=== PATIENT | male | born 1970 | race Hispanic/Latino ===

== ENCOUNTER 2017-09-04 09:26 | Inpatient (IN) | payer OTHER ==
[2017-09-04 09:28] VITALS: BMI 25.0
[2017-09-04] MEDS ORDERED: Iodixanol 320 MG/ML 100 ML BOTTLE IV ONE ×2 (09:51→16:06)
[2017-09-04] MEDS ORDERED: Sodium Chloride 0.9% 50 ML IV ONE ×2 (09:51→16:06)
--- NOTE | 2017-09-04 09:59 | CT ---
PROCEDURE: CT HEAD WITHOUT CONTRAST. HISTORY: code stroke COMPARISON: None available. TECHNIQUE: Axial computed tomography images were obtained through the head/brain without intravenous contrast. Radiation dose: Total exam DLP = 752 mGy-cm. This CT exam was performed using one or more of the following dose reduction techniques: Automated exposure control, adjustment of the mA and/or kV according to patient size, and/or use of iterative reconstruction technique. FINDINGS: The exam is limited due to patient's motion HEMORRHAGE: No intracranial hemorrhage. BRAIN: No mass effect or edema. No atrophy or chronic microvascular ischemic changes. VENTRICLES: Unremarkable. No hydrocephalus. CALVARIUM: Unremarkable. PARANASAL SINUSES: Unremarkable as visualized. No significant inflammatory changes. MASTOID AIR CELLS: Unremarkable as visualized. No inflammatory changes. OTHER FINDINGS: None. IMPRESSION: No intracranial hemorrhage or mass effect.
[2017-09-04 10:11] LABS: BASO % 0.4 % (0.0-2.0); EOS # 0.1 K/uL (0.0-0.7); EOS % 0.5 % (0.0-4.0); HEMOGLOBIN 14.9 g/dL (12.0-18.0); LYMPH # 0.6 K/uL (1.0-4.3); LYMPH % 5.2 % (20.0-40.0); MEAN CELL VOLUME 87.7 fl (80.0-94.0); MEAN CORPUSCULAR HEMOGLOBIN 29.6 pg (27.0-31.0); MEAN CORPUSCULAR HGB CONC 33.7 g/dL (33.0-37.0); MEAN PLATELET VOLUME 10.6 fl (7.2-11.7); MONO # 0.6 K/uL (0.0-0.8); MONO % 4.9 % (0.0-10.0); NEUT # 10.5 K/uL (1.8-7.0); NRBC % 0.1 % (0.0-0.0); PLATELET COUNT 275 K/uL (130-400); RBC 5.05 Mil/uL (4.40-5.90); RED CELL DISTRIBUTION WIDTH 12.7 % (11.5-14.5); WHITE BLOOD COUNT 11.8 K/uL (4.8-10.8)
[2017-09-04 10:16] LABS: PROTHROMBIN TIME 11.2 Seconds (9.8-13.1)
[2017-09-04 10:21] LABS: ABG ALLEN TEST YES; ARTERIAL BLOOD GAS HCO3 21.1 mmol/L (21-28); ARTERIAL BLOOD GAS O2 SAT 48.7 % (95-98); ARTERIAL BLOOD GAS PCO2 34 mm/Hg (35-45); ARTERIAL BLOOD GAS PO2 22 mm/Hg (80-100); ARTERIAL BLOOD GAS TCO2 22.1 mmol/L (22-28)
[2017-09-04 10:25] LABS: ALB/GLOB RATIO 1.4 (1.0-2.1); ALBUMIN 4.4 g/dL (3.5-5.0); ALT/SGPT 36 U/L (21-72); AST/SGOT 25 U/L (17-59); BLOOD UREA NITROGEN 16 mg/dl (9-20); GFR AFRICAN-AMERICAN > 60; GFR NON-AFRICAN AMERICAN > 60; HDL CHOLESTEROL 37 MG/DL (30-70)
[2017-09-04 10:30] LABS: ABG ALLEN TEST YES; ARTERIAL BLOOD GAS HCO3 22.9 mmol/L (21-28); ARTERIAL BLOOD GAS O2 SAT 99.3 % (95-98); ARTERIAL BLOOD GAS PCO2 26 mm/Hg (35-45); ARTERIAL BLOOD GAS PH 7.48 (7.35-7.45); ARTERIAL BLOOD GAS PO2 115 mm/Hg (80-100); ARTERIAL BLOOD GAS TCO2 20.2 mmol/L (22-28)
[2017-09-04] MEDS: Sodium Chloride 0.9% 1,000 ML IV SCH (10:30)
[2017-09-04 10:36] LABS: LDL CHOLESTEROL 109 mg/dL (0-129)
--- NOTE | 2017-09-04 11:01 | CARD ---
APPROVED REPORT EKG Measurement Heart [id number] OK [id number] <Conclusion> Normal sinus rhythm Low voltage QRS Septal infarct, age undetermined Abnormal ECG
--- NOTE | 2017-09-04 11:06 | ED PDOC ---
HPI: Altered Mental Status Time Seen by Provider: 09/04/17 09:41 Chief Complaint (Nursing): Altered Mental Status History Per: Family (this is a 47 yo male who presents to the ER because he was noted to have collapsed in the lobby at work, after which he was noted to be confused and unable to speak. According to his , he had texted unintelligible words to her around the same. She also states that he had a headache this morning but decided to go to work from [place] to [place] where he works for [employer]. Patient h/o migraine headaches that has resulted in ER visits and CT of the brain because of numbness of lips and extremities. He does not usually take any meds for migraines. Of note is that he had taken one take of his Vyvanse 20mg 4 days ago. It is not clear whether he has taken more since then. will verify this.), Other Past Medical History Reviewed: Historical Data, Nursing Documentation, Vital Signs Vital Signs: Last Vital Signs Temp 98 F 09/04/17 09:55 Pulse 105 H 09/04/17 09:55 Resp 16 09/04/17 09:55 BP 144/79 09/04/17 09:55 Pulse Ox 99 09/04/17 09:55 - Medical History PMH: Migraine - Surgical History Other surgeries: knee surgery complicated by blood clots. He was on blood thinners for 2 months and had stopped it. This happenned a little over one year ago. - Family History Family History: States: No Known Family Hx - Living Arrangements Living Arrangements: With Family - Social History Alcohol: Occasional Drugs: Denies (as per ) - Allergies Allergies/Adverse Reactions: Allergies Allergy/AdvReac Type Severity Reaction Status Date / Time No Known Allergies Allergy Verified 09/04/17 10:27 Review of Systems ROS Statement: Except As Marked, All Systems Reviewed And Found Negative Review Of Systems: ROS cannot be obtained secondary to pt's inabilty to answer questions. Constitutional: Positive for: Fever Physical Exam - Reviewed Nursing Documentation Reviewed: Yes Vital Signs Reviewed: Yes - Physical Exam Appears: Positive for: Well, Non-toxic, No Acute Distress Head Exam: Positive for: ATRAUMATIC, NORMAL INSPECTION, NORMOCEPHALIC Skin: Positive for: Normal Color, Warm, DRY Eye Exam: Positive for: Normal appearance, EOMI, PERRL (dilated but reactive and equal) ENT: Positive for: Normal ENT Inspection Neck: Positive for: Normal, Painless ROM Cardiovascular/Chest: Positive for: Regular Rate, Rhythm Respiratory: Positive for: CNT, Normal Breath Sounds Gastrointestinal/Abdominal: Positive for: Normal Exam, Soft Back: Positive for: Normal Inspection Extremity: Positive for: Normal ROM Neurologic/Psych: Positive for: Alert, Oriented - Laboratory Results Result Diagrams: 09/04/17 10:00 09/04/17 10:00 - ECG O2 Sat by Pulse Oximetry: 99 - Progress Re-evaluation Time: 12:31 Condition: Re-examined, Unchanged - Critical Care Total Time (In Min): 60 Medical Decision Making Medical Decision Making: patient's labs show severely low phosphorous. Pharmacist consulted. Will give IV Kphos. Case d/w . Patient is still confused. Discussed admission. is considering transferring patient to hospital near home in [facility]. 3.00p - Patient still here. Case reviewed Dr. Lake Doshi's PA who took care of Uvaldo last year after his knee surgery. She says that Dr. Bethea will accept patient on his service. Also spoke to Dr. Joann Rodriguez ( [phone]), the [facility] ([facility]). She also agreed to take patient onto the hospitalist service. A prior authorization is being requested prior to transfer. Lizabeth from case management is involved to assist. Patient's kept up to date on the process 3:45p - case d/w Dr. Silva. Advised MgS04 2gm, Decadron 10mg IV, Depakote 500mg IV and CTA Head and Neck. 4.45p - patient in CT. Efforts to transfer still in progress. Will endorse case to Dr. Ferguson. Disposition - Clinical Impression Clinical Impression: Altered mental status, Hypophosphatemia - Patient ED Disposition Is Patient to be Admitted: Transfer of Care - Disposition Disposition: Transfer of Care Disposition Time: 16:51 Condition: GUARDED Instructions: Altered Mental Status Forms: [employer] (Scottish) Patient Signed Over To: Jesús Ferguson Present On Arrival: None
[2017-09-04 11:34] LABS: LYMPHOCYTE 4 % (20-50); MONOCYTE 5 % (0-10); NEUTROPHIL 91 % (42-75); TOTAL CELLS COUNTED 100
[2017-09-04 11:35] LABS: PLATELET ESTIMATE NORMAL (NORMAL)
[2017-09-04] MEDS ORDERED: Potassium Phosphate 30 MMOLE in Sodium Chloride 0.9% 250 ML IV ONE (12:30)
[2017-09-04] MEDS ORDERED: Potassium Phosphate 15 MMOLE in Sodium Chloride 0.9% 250 ML IV ONE (12:45)
[2017-09-04] MEDS ORDERED: Sodium Chloride 0.9% 1,000 ML IV STA (15:54)
[2017-09-04] MEDS ORDERED: Dexamethasone 10 MG in Sodium Chloride 0.9% 50 ML IV ONE (15:56)
[2017-09-04] MEDS ORDERED: Valproate 500 MG in Sodium Chloride 0.9% 100 ML IVPB ONE (16:15)
[2017-09-04] MEDS ORDERED: Magnesium Sulfate 2 gm/50 ml 2 GM/50 ML BAG IVPB ONE (16:15)
[2017-09-04] MEDS ORDERED: Magnesium Sulfate 2 gm/50 ml 2 GM/50 ML BAG ONE (16:23)
--- NOTE | 2017-09-04 17:41 | CT ---
PROCEDURE: CT Angiography of the neck with contrast HISTORY: AMS COMPARISON: Comparison made with CT scan brain 09/04/2017. TECHNIQUE: Contiguous axial images of the neck were obtained from the level of the skull-base to the superior mediastinum in the arteriographic phase of enhancement. Coronal and sagittal reformats or also generated. IV contrast dose: 90 cc Visipaque 320 Radiation Dose - DLP: 695.2 mGy-cm This CT exam was performed using one or more of the following dose reduction techniques: Automated exposure control, adjustment of the mA and/or kV according to patient size, and/or use of iterative reconstruction technique. FINDINGS: RIGHT CAROTID ARTERIES: Common Carotid Artery: Normal. Carotid Bifurcation: Normal. Internal Carotid Artery:Normal. External Carotid Artery (proximal branches): Normal. LEFT CAROTID ARTERIES: Common Carotid Artery: Normal. Carotid Bifurcation: Normal. Internal Carotid Artery:Normal. External Carotid Artery (proximal branches): Normal. VERTEBRAL ARTERIES: Right Vertebral Artery: Normal. Left Vertebral Artery: Normal. OTHER FINDINGS: No evidence of intra cerebral aneurysm nor vascular malformation. The aortic arch widely patent with no significant atherosclerotic disease. . No significant calcified atherosclerotic plaque at the origins of the great vessels which also widely patent. Note made of multiple small palatine tonsillar calcifications consistent with tonsilliths. IMPRESSION: Normal CT Angiography of the neck. Incidental note made of multiple small bilateral tonsilliths.
[2017-09-04] MEDS ORDERED: Sodium Phosphate 30 MMOLE in Dextrose 5% In Water 250 ML IV SCH (17:45)
--- NOTE | 2017-09-04 18:31 | CP.CCUPN ---
CCU Subjective - Physician Review Subjective (Free Text): 47M with PMH Complex Migraines on Imitrex, Tylenol/Motrin prn, admitted today after Code Stroke evaluation. He was found collapsed in the Lobby at work today. He did complain of headaches and not feeling well, but decided to go to work as usual. After collapse, found to be confused, not following commands, and dysarthric, but no focal weakness noted. Later became more agitated and combative and required sedation with Ativan for CT brain study. Initial labs notable for low Phosphate, subsequently given KPhos IV. Remains sedated post Ativan administration. Other vitals and I/O's reviewed. Afebrile, tachycardic 103, BP 144/79, RR = 16 , 99% sat on RA ROS: no other pertinent negs or positives on 10+ system review obtainable due to confusion. Allergies: NKDA Home meds: as above, also Vyvanse prn: last dose 20 mg few days ago according to . PMSFH: All other Nursing and physician documentation reviewed to date; no new pertinent info obtained that is different or contributory to information already listed. EXAM- HEENT: no icterus, pupils equal and reactive, no gaze preference nor nystagmus, Gag intact NECK: No JVD, supple, carotids equal upstroke bilat/no bruits CHEST: clear with diminished BS bases bilat, no wheezes audible HEART: regular, distant, S1S2, no rubs or murmurs ABD: soft, no distention, no tympany, no palp tenderness, BS hypoactive EXT: No peripheral/ digital cyanosis, no calf tenderness or palpable cords, distal pulses intact and symmetrical. NEURO: No gross focal motor deficits. SKIN: no rashes, warm and dry. LABS: WBC= 11.8 HGB= 14.9 PLTs= 275K Coags Nnormal VB.40/34/22 48% satn AB.48/26/115 on RA Gk=812 K= 4.6 EB=661 HCO3= 18 BUN/Cr= 16/1.0 BS= 157 Lactate= 4.6, repeated approx 30 mins later = 3.3 Phos= below 0.5 Mg= 1.8 Ca= 10.0 with Alb = 4.4 CT Head: negative CTA Brain: formal results pending EKG: Sinus 84/min, Qs in V2-3, poor R progression anteriorly (my interp). IMPRESSION / MAJOR PROBLEMS NOW: 1. AMS with Syncope, r/o occult Seizure Disorder due to severely low Phosphate levels 2. Hypophosphatemia 3. Elevated AG Metabolic Acidosis PLAN: 1. Await CTA results, started on Decadron and Depakote as per Neurology for [employer] Migraine disease. 2. Seizure precautions, Neurochecks, HOB elevation, may need 1:1 supervision for patient safety. Repeat brain imaging as per Neurology. 3. IVF hydration, replete more phosphate as Sodium Phosphate. Will keep NPO for now; with aspiration precautions. Check routine CXR. 4. Does not appear to need any emergent nor immediate airway protection at this time. 5. Check other metabolic w/u: TFTs, Serial CK levels, lactate, repeat BMP/ CMPs, Vit D level, PTH level. 6. Arrangements in progress for transfer to [facility] as per familys request.
--- NOTE | 2017-09-04 18:47 | CP.PCM.CON ---
History of Present Illness - History of Present Illness History of Present Illness: Neurology Consultation Note: Mr. Mosher is a 47-year-old man with past a medical history of complicated migraine headaches, who collapsed at work today after texting his unintelligible words. He had complained of migraine headache this morning. He was brought to the ED, where he continued to be confused, but was able to form full sentences. He had difficulty with comprehension and following commands. A "code stroke" was called. CT scan of the head was unremarkable. Labs were significant for hypophosphatemia. CTA of the head/neck did not show any large vessel occlusion. His states that that patient appears to have taken about 60 mg of Vyvance. He is naive to his medication and apparently took it from a relative. He was combative and needed sedation with Ativan. Currently, he is somnolent, but moves all extremities and says "ouch" to painful stimulus. He does not appear to have any facial droop or focal weakness. He can make sentences when prompted at times and was able to walk to the bathroom where he refused to provide urine for labs. Review of Systems - Review of Systems All systems: reviewed and no additional remarkable complaints except Past Patient History - Past Social History Alcohol: Occasional Drugs: Denies (as per ) - NEUROLOGICAL Hx Migraine: Yes - PSYCHIATRIC Hx Substance Use: No (unknown) Meds Allergies/Adverse Reactions: Allergies Allergy/AdvReac Type Severity Reaction Status Date / Time No Known Allergies Allergy Verified 09/04/17 10:27 - Medications Medications: Current Medications Sodium Chloride (Sodium Chloride 0.9%) 1,000 mls @ 100 mls/hr IV .Q10H THA Last Admin: 09/04/17 10:30 Dose: 100 mls/hr Sodium Chloride (Sodium Chloride 0.9%) 1,000 mls @ 125 mls/hr IV .Q8H STA Stop: 09/04/17 23:53 Last Admin: 09/04/17 17:38 Dose: 125 mls/hr Sodium Phosphate 30 mmole/ (Dextrose) 260 mls @ 65 mls/hr IV .Q4H THA Stop: 09/04/17 21:44 Physical Exam - Neurological Exam Neurological exam: Altered, CN II-XII Intact, Normal Gait, Reflexes Normal Additional comments: Pupils are widely dilated and reactive to light. Moves all extremities, responds to pain, does not open eyes. Results - Vital Signs Recent Vital Signs: Last Vital Signs Temp 98 F 09/04/17 09:55 Pulse 103 H 09/04/17 13:28 Resp 16 09/04/17 13:28 BP 134/82 09/04/17 13:28 Pulse Ox 99 09/04/17 16:51 - Labs Result Diagrams: 09/04/17 10:00 09/04/17 10:00 Labs: Laboratory Results - last 24 hr 09/04/17 09/04/17 09/04/17 09:35 10:00 10:00 WBC 11.8 H RBC 5.05 Hgb 14.9 Hct 44.3 MCV 87.7 MCH 29.6 MCHC 33.7 RDW 12.7 Plt Count 275 MPV 10.6 Neut % (Auto) 89.0 H Lymph % (Auto) 5.2 L Mclennan % (Auto) 4.9 Eos % (Auto) 0.5 Baso % (Auto) 0.4 Neut # (Auto) 10.5 H Lymph # (Auto) 0.6 L Mclennan # (Auto) 0.6 Eos # (Auto) 0.1 Baso # (Auto) 0.0 Neutrophils % (Manual) 91 H Lymphocytes % (Manual) 4 L Monocytes % (Manual) 5 Platelet Estimate Normal PT INR APTT pCO2 pO2 HCO3 ABG pH ABG Total CO2 ABG O2 Saturation ABG Base Excess Edy Test ABG Potassium A-a O2 Difference Glucose Lactate FiO2 Crit Value Called To Crit Value Called By Crit Value Read Back Blood Gas Notified Time Sodium 141 Potassium 4.6 Chloride 107 Carbon Dioxide 18 L Anion Gap 21 H BUN 16 Creatinine 1.0 Est GFR ( Amer) > 60 Est GFR (Non-Af Amer) > 60 POC Glucose (mg/dL) 119 H Random Glucose 157 H Hemoglobin A1c Calcium 10.0 Phosphorus < 0.5 L* Magnesium 1.8 Total Bilirubin 0.9 AST 25 ALT 36 Alkaline Phosphatase 40 Troponin I < 0.0120 Total Protein 7.6 Albumin 4.4 Globulin 3.1 Albumin/Globulin Ratio 1.4 Triglycerides 62 Cholesterol 183 LDL Cholesterol Direct 109 HDL Cholesterol 37 Arterial Blood Potassium Alcohol, Quantitative < 10 Blood Type Antibody Screen BBK History Checked 09/04/17 09/04/17 09/04/17 10:00 10:00 10:00 WBC RBC Hgb Hct MCV MCH MCHC RDW Plt Count MPV Neut % (Auto) Lymph % (Auto) Mclennan % (Auto) Eos % (Auto) Baso % (Auto) Neut # (Auto) Lymph # (Auto) Mclennan # (Auto) Eos # (Auto) Baso # (Auto) Neutrophils % (Manual) Lymphocytes % (Manual) Monocytes % (Manual) Platelet Estimate PT 11.2 INR 1.0 APTT 26.0 pCO2 pO2 HCO3 ABG pH ABG Total CO2 ABG O2 Saturation ABG Base Excess Edy Test ABG Potassium A-a O2 Difference Glucose Lactate FiO2 Crit Value Called To Crit Value Called By Crit Value Read Back Blood Gas Notified Time Sodium Potassium Chloride Carbon Dioxide Anion Gap BUN Creatinine Est GFR ( Amer) Est GFR (Non-Af Amer) POC Glucose (mg/dL) Random Glucose Hemoglobin A1c 5.2 Calcium Phosphorus Magnesium Total Bilirubin AST ALT Alkaline Phosphatase Troponin I Total Protein Albumin Globulin Albumin/Globulin Ratio Triglycerides Cholesterol LDL Cholesterol Direct HDL Cholesterol Arterial Blood Potassium Alcohol, Quantitative Blood Type A POSITIVE Antibody Screen Negative BBK History Checked No verified bt 09/04/17 09/04/17 10:05 10:27 WBC RBC Hgb Hct MCV MCH MCHC RDW Plt Count MPV Neut % (Auto) Lymph % (Auto) Mclennan % (Auto) Eos % (Auto) Baso % (Auto) Neut # (Auto) Lymph # (Auto) Mclennan # (Auto) Eos # (Auto) Baso # (Auto) Neutrophils % (Manual) Lymphocytes % (Manual) Monocytes % (Manual) Platelet Estimate PT INR APTT pCO2 34 L 26 L pO2 22 L* 115 H HCO3 21.1 22.9 ABG pH 7.40 7.48 H ABG Total CO2 22.1 20.2 L ABG O2 Saturation 48.7 L 99.3 H ABG Base Excess -2.9 L -2.5 L Edy Test Yes Yes ABG Potassium 3.9 3.6 A-a O2 Difference 85.0 2.0 Glucose 160 H 156 H Lactate 4.6 H* 3.3 H FiO2 21.0 21.0 Crit Value Called To Dr yovani lainez Crit Value Called By 15 Crit Value Read Back Y Blood Gas Notified Time 1020 Sodium 138.0 135.0 Potassium Chloride 106.0 107.0 Carbon Dioxide Anion Gap BUN Creatinine Est GFR ( Amer) Est GFR (Non-Af Amer) POC Glucose (mg/dL) Random Glucose Hemoglobin A1c Calcium Phosphorus Magnesium Total Bilirubin AST ALT Alkaline Phosphatase Troponin I Total Protein Albumin Globulin Albumin/Globulin Ratio Triglycerides Cholesterol LDL Cholesterol Direct HDL Cholesterol Arterial Blood Potassium 3.9 3.6 Alcohol, Quantitative Blood Type Antibody Screen BBK History Checked Assessment & Plan (1) Toxic metabolic encephalopathy Assessment and Plan: Likely due to stimulant medication and metabolic abnormalities. I recommend treating the patient's headache with magnesium sulfate 2 grams IV, decadron 10 mg IV and depakote 500 mg IV. Furthermore, consider treating with Lisa for the psychosis that could be drug induced. MRI of the brain can be obtained tomorrow if he is not back to baseline. Thank you. Status: Acute Priority: High
[2017-09-04 20:11] LABS: BLOOD UREA NITROGEN 11 mg/dl (9-20); CALCIUM 9.6 mg/dL (8.4-10.2); GFR AFRICAN-AMERICAN > 60; GFR NON-AFRICAN AMERICAN > 60
[2017-09-04 20:52] LABS: URINE BILIRUBIN NEGATIVE (NEGATIVE); URINE BLOOD NEGATIVE (NEGATIVE); URINE CLARITY CLEAR (Clear); URINE COLOR STRAW (YELLOW); URINE GLUCOSE (UA) NEG (Normal); URINE LEUKOCYTE ESTERASE NEG Leu/uL (Negative); URINE PROTEIN NEGATIVE (NEGATIVE); URINE UROBILINOGEN 0.2-1.0 mg/dL (0.2-1.0)
[2017-09-04 21:12] LABS: BARBITURATES, UR NEGATIVE (NEGATIVE); BENZODIAZEPINES, UR NEGATIVE (NEGATIVE); OPIATES, UR NEGATIVE (NEGATIVE); PHENCYCLIDINE, UR NEGATIVE (NEGATIVE)
[2017-09-05 05:35] LABS: BASO % 0.1 % (0.0-2.0); HEMOGLOBIN 14.3 g/dL (12.0-18.0); LYMPH # 0.7 K/uL (1.0-4.3); LYMPH % 6.3 % (20.0-40.0); MEAN CELL VOLUME 88.6 fl (80.0-94.0); MEAN CORPUSCULAR HEMOGLOBIN 30.2 pg (27.0-31.0); MEAN CORPUSCULAR HGB CONC 34.1 g/dL (33.0-37.0); MEAN PLATELET VOLUME 10.3 fl (7.2-11.7); MONO # 0.5 K/uL (0.0-0.8); MONO % 4.3 % (0.0-10.0); NEUT # 9.8 K/uL (1.8-7.0); NEUT % 89.3 % (50.0-75.0); RBC 4.73 Mil/uL (4.40-5.90); RED CELL DISTRIBUTION WIDTH 12.8 % (11.5-14.5); WHITE BLOOD COUNT 10.9 K/uL (4.8-10.8)
[2017-09-05 06:36] LABS: ALB/GLOB RATIO 1.3 (1.0-2.1); ALBUMIN 3.8 g/dL (3.5-5.0); ALT/SGPT 32 U/L (21-72); AST/SGOT 16 U/L (17-59); BLOOD UREA NITROGEN 10 mg/dl (9-20); CALCIUM 9.1 mg/dL (8.4-10.2); GFR AFRICAN-AMERICAN > 60; GFR NON-AFRICAN AMERICAN > 60
[2017-09-05] MEDS: Sodium Chloride 0.9% 1,000 ML IV SCH (06:43)
--- NOTE | 2017-09-05 10:39 | CP.PCM.PN ---
Subjective - Date & Time of Evaluation Date of Evaluation: 09/05/17 Time of Evaluation: 10:37 - Subjective Subjective: Mr. Mosher was sen and examined at the bedside in ICU. He is alert, oriented in all spheres. He denies any headache, dizziness, lightheadedness. He is able to follow simple commands. According to the patient, he suffers from migraine and had an episode yesterday morning. He is back to his baseline. There was no untoward events overnight. Objective - Vital Signs/Intake and Output Vital Signs (last 24 hours): Temp Pulse Resp BP Pulse Ox 98.6 F 89 13 123/74 98 09/05/17 08:00 09/05/17 08:00 09/05/17 08:00 09/05/17 08:00 09/05/17 08:00 Intake and Output: 09/05/17 09/05/17 06:59 18:59 Intake Total 350 Output Total 300 Balance 50 - Medications Medications: Current Medications Sodium Chloride (Sodium Chloride 0.9%) 1,000 mls @ 100 mls/hr IV .Q10H THA Last Admin: 09/05/17 06:43 Dose: 100 mls/hr - Labs Labs: 09/05/17 04:20 09/05/17 04:20 PT 11.2 Seconds (9.8-13.1) 09/04/17 10:00 INR 1.0 (0.9-1.2) 09/04/17 10:00 APTT 26.0 Seconds (25.6-37.1) 09/04/17 10:00 - Constitutional Appears: No Acute Distress - Head Exam Head Exam: NORMAL INSPECTION - Eye Exam Pupil Exam: PERRL - Neurological Exam Neurological Exam: Alert, Awake, CN II-XII Intact, Oriented x3 Neuro motor strength exam: Left Upper Extremity: 5, Right Upper Extremity: 5, Left Lower Extremity: 5, Right Lower Extremity: 5 Additional comments: alert, oriented in all spheres, follows commands, back to his baseline Assessment and Plan (1) Toxic metabolic encephalopathy Assessment & Plan: Case discussed with Dr. Silva, continue all current medical regimen. Recommend hydration, MRI of the brain to evaluate any brain pathology and especially with the incident yesterday, blood pressure control, and treat any electrolyte abnormalities. Status: Acute
[2017-09-05 12:22] VITALS: TEMP 98.5
--- NOTE | 2017-09-05 13:26 | CP.PCM.HP ---
History of Present Illness - History of Present Illness History of Present Illness: CC: AMS. 47 y/o M, Hx Migraine, brought by EMS to ER [facility], [place] to be evaluated for AMS on DOA with no improvement. As per EMS on arrivals, Pt had a sudden onset of syncopal episode in the lobby while at work, associated to headache, migraine type in AM DOA ( As per ), dizziness, after collapse, not following commands, unable to speak clearly, Pt took Tylenol/ Motrin while at home in AM with no relief. Worsening symptoms: Critical phosphorous level <0.5, Pt had a code event at 10: 32 AM while in the ED unit and was admitted to ICU. Aggravated factor: Incompliant with medications. Also, Pt with Hx of complicated surgery 2nd to blood clots, there after on blood thinner x 2 months and had stopped it about a year ago. Brain MRI: Low-lying cerebellar tonsils with the remaining brain parenchyma, otherwise unremarkable. Present on Admission - Present on Admission Any Indicators Present on Admission: Yes History of DVT/PE: Yes Review of Systems - Constitutional Constitutional: Headache - EENT Eyes: Requires Corrective Lenses Ears: Other (negative) Nose/Mouth/Throat: Other (negative) - Cardiovascular Cardiovascular: Rapid Heart Rate - Respiratory Respiratory: Other (negative) - Gastrointestinal Gastrointestinal: Other (negative) - Musculoskeletal Musculoskeletal: Other (negative) - Integumentary Integumentary: Other (negative) - Neurological Neurological: Confusion, Dizziness, Headaches, Syncope - Psychiatric Psychiatric: Other (negative) - Endocrine Endocrine: Other (negative) - Hematologic/Lymphatic Hematologic: Other (negative) Past Patient History - Past Medical History & Family History Past Medical History?: Yes Pertinent Family History: Unknown - Past Social History Smoking Status: Never Smoked Alcohol: Social Drugs: Denies Home Situation {Lives}: With Family - CARDIAC Hx Cardiac Disorders: No Hx Angina: No Hx Atrial Fibrillation: No Hx Cardia Arrhythmia: No Hx Circulatory Problems: No Hx Congestive Heart Failure: No Hx Heart Attack: No Hx Heart Murmur: No Hx Heart Transplant: No Hx Hypercholesterolemia: No Hx Hypertension: No Hx Hypotension: No Hx Internal Defibrillator: No Hx Mitral Valve Prolapse: No Hx Pacemaker: No Hx Peripheral Edema: No Hx Peripheral Vascular Disease: No - PULMONARY Hx Respiratory Disorders: Yes Hx Asthma: Yes (hx of asthma, used albuterol last taken many years ago) Hx Bronchitis: No Hx Chronic Obstructive Pulmonary Disease (COPD): No Hx Emphysema: No Hx Lung Cancer: No Hx Pneumonia: No Hx Pulmonary Edema: No Hx Pulmonary Embolism: No Hx Respiratory Aspiration: No Hx Respiratory Tract Infection: No Hx Sleep Apnea: No Hx Tuberculosis: No Other/Comment: hx of DVT, on xarelto; stopped medication about 1yr ago - NEUROLOGICAL Hx Neurological Disorder: No Hx Alzheimer's Disease: No HX Cerebrovascular Accident: No Hx Dementia: No Hx Dizziness: No Hx Meningitis: No Hx Migraine: Yes Hx Multiple Sclerosis: No Hx Paralysis: No Hx Parkinson's Disease: No Hx Seizures: No Hx Syncope: No Hx Transient Ischemic Attacks (TIA): No Hx Vertigo: No - HEENT Hx HEENT Problems: Yes Hx Blind: No Hx Cataracts: No Hx Deafness: No Hx Difficulty Chewing: No Hx Epistaxis: No Hx Glaucoma: No Hx Macular Degeneration: No Hx Sinusitis: No Other/Comment: wears glasses for sight - RENAL Hx Chronic Kidney Disease: No Hx Dialysis: No Hx Kidney Stones: No Hx Neurogenic Bladder: No Hx Pyelonephritis: No Hx Renal (Kidney) Cancer: No Hx Renal Failure: No - ENDOCRINE/METABOLIC Hx Endocrine Disorders: No Hx Adrenal Cancer: No Hx Diabetes Insipidus: No Hx Diabetes Mellitus Type 1: No Hx Diabetes Mellitus Type 2: No Hx Hyperthyroidism: No Hx Hypothyroidism: No Hx Systemic Lupus Erythematosus: No - HEMATOLOGICAL/ONCOLOGICAL Hx Blood Disorders: No Hx AIDS: No Hx Anemia: No Hx Blood Transfusions: No Hx Blood Transfusion Reaction: No Hx Bruising: No Hx Cancer: No Hx Chemotherapy: No Hx Cirrhosis: No Hx Gum Bleeding: No Hx Hemophilia: No Hx Hepatitis A: No Hx Hepatitis B: No Hx Hepatitis C: No Hx Human Immunodeficiency Virus (HIV): No Hx Leukemia: No Hx Metastesis: No Hx Shingles: No Hx Sickle Cell Disease: No Hx Unexplained Bleeding: No Hx von Willebrand's Disease: No - INTEGUMENTARY Hx Dermatological Problems: No Hx Basil Cell: No Hx Morales: No Hx Cellulitis: No Hx Eczema: No Hx Melanoma: No Hx Psoriasis: No Hx Squamous Cell: No - MUSCULOSKELETAL/RHEUMATOLOGICAL Hx Musculoskeletal Disorders: No Hx Arthritis: No Hx Back Pain: No Hx Degenerative Joint Disease: No Hx Falls: No Hx Fractures: No Hx Gout: No Hx Herniated Disk: No Hx Myasthenia Gravis: No Hx Osteoarthritis: No Hx Osteomyelitis: No Hx Osteoporosis: No Hx Rhabdomyolysis: No Hx Rheumatoid Arthritis: No Hx Spinal Stenosis: No Hx Unsteady Gait: No Other/Comment: s/p left knee surgery; (ACL repair) - GASTROINTESTINAL Hx Gastrointestinal Disorders: No Hx Bowel Surgery: No Hx Clostridium Difficile: No Hx Colitis: No Hx Colostomy: No Hx Constipation: No Hx Crohn's Disease: No Hx Diarrhea: No Hx Diverticulitis: No Hx Esophageal Varices: No Hx Fatty Liver Disease: No Hx Gall Bladder Disease: No Hx Gastritis: No Hx Gastroesophageal Reflux: No Hx Hemorrhoids: No Hx Ileostomy: No Hx Irritable Bowel: No Hx Liver Failure: No Hx Nausea: No Hx Pancreatitis: No HX Swallowing Problems: No Hx Ulcer: No Hx Vomiting: No - GENITOURINARY/GYNECOLOGICAL Hx Genitourinary Disorders: No Hx Bladder Cancer: No Hx Bladder Stone: No Hx Hematuria: No Hx Incontinence: No Hx Prostate Cancer: No Hx Prostate Problems: No Hx Reproductive Disorders: No Hx Sexually Transmitted Disorders: No Hx Urinary Tract Infection: No - PSYCHIATRIC Hx Psychophysiologic Disorder: No Hx Anxiety: No Hx Bipolar Disorder: No Hx Depression: No Hx Emotional Abuse: No Hx Hallucinations: No Hx Panic Symptoms: No Hx Paranoia: No Hx Post Traumatic Stress Disorder: No Hx Psychosis: No Hx Physical Abuse: No Hx Schizophrenia: No Hx Sexual Abuse: No Hx Substance Use: No - SURGICAL HISTORY Hx Surgeries: Yes Hx Abdominal Aortic Aneurysm Repair: No Hx Amputation: No Hx Angiogram: No Hx Angioplasty: No Hx Appendectomy: No Hx Arteriovenous Shunt: No Hx Arthroscopy: No Hx Bile Duct Stent: No Hx Breast Biopsy: No Hx Cataract Extraction: No Hx Cardiac Catheterization: No Hx Carotid Endarterectomy: No Hx Section: No Hx Cholecystectomy: No Hx Coronary Artery Bypass Graft: No Hx Coronary Stent: No Hx Dilation and Curettage: No Hx Eye Surgery: No Hx Femoral-Popliteal Bypass Graft: No Hx Gastric Bypass Surgery: No Hx Herniorrhaphy: No Hx Hysterectomy: No Hx Joint Replacement: No Hx Kidney Transplant: No Hx Liver Transplant: No Hx Mastectomy: No Hx Musculoskeletal Surgery: No Hx Open Heart Surgery: No Hx Open Reduction Internal Fixation: No Hx Orthopedic Surgery: Yes Hx Parathyroidectomy: No Hx Penile Implant: No Hx Pulmonary Surgery: No Hx Splenectomy: No Hx Thyroidectomy: No Hx Tonsillectomy: No Hx Tubal Ligation: No Hx Valve Replacement: No Hx Vascular Surgery: No Hx Vascular Access Device: No Other/Comment: s/p left knee surgery July 2016 (ACL repair) - ANESTHESIA Hx Anesthesia: Yes Hx Anesthesia Reactions: No Hx Malignant Hyperthermia: No Has any member of the family had a problem w/ anesthesia?: No Meds Allergies/Adverse Reactions: Allergies Allergy/AdvReac Type Severity Reaction Status Date / Time No Known Allergies Allergy Verified 09/04/17 10:27 Physical Exam - Constitutional Appears: No Acute Distress - Head Exam Head Exam: NORMAL INSPECTION - Eye Exam Eye Exam: PERRL - ENT Exam ENT Exam: Normal Exam - Neck Exam Neck exam: Positive for: Normal Inspection - Respiratory Exam Respiratory Exam: Clear to Auscultation Bilateral - Cardiovascular Exam Cardiovascular Exam: REGULAR RHYTHM - GI/Abdominal Exam GI & Abdominal Exam: Normal Bowel Sounds, Soft - Extremities Exam Extremities exam: Positive for: normal inspection - Back Exam Back exam: NORMAL INSPECTION - Neurological Exam Neurological exam: Alert, Oriented x3 Additional comments: No motor/sensory deficit. - Psychiatric Exam Psychiatric exam: Normal Affect, Normal Mood - Skin Skin Exam: Warm Results - Vital Signs Recent Vital Signs: Last Vital Signs Temp 98.5 F 09/05/17 08:00 Pulse 76 09/05/17 09:00 Resp 16 09/05/17 09:00 BP 113/74 09/05/17 09:00 Pulse Ox 100 09/05/17 09:00 joshua Ni - Labs Result Diagrams: 09/05/17 04:20 09/05/17 04:20 Labs: Laboratory Results - last 24 hr 09/04/17 09/04/17 09/04/17 10:00 10:36 19:25 WBC RBC Hgb Hct MCV MCH MCHC RDW Plt Count MPV Neut % (Auto) Lymph % (Auto) [place] % (Auto) Eos % (Auto) Baso % (Auto) Neut # (Auto) Lymph # (Auto) [place] # (Auto) Eos # (Auto) Baso # (Auto) Sodium Potassium Chloride Carbon Dioxide Anion Gap BUN Creatinine Est GFR ( Amer) Est GFR (Non-Af Amer) Random Glucose Hemoglobin A1c 5.2 Lactic Acid 0.9 Calcium Phosphorus Magnesium Total Bilirubin AST ALT Alkaline Phosphatase Total Creatine Kinase Troponin I Total Protein Albumin Globulin Albumin/Globulin Ratio 25-OH Vitamin D Total TSH 3rd Generation Prolactin 28.6 H Urine Color Urine Clarity Urine pH Ur Specific [place] Urine Protein Urine Glucose (UA) Urine Ketones Urine Blood Urine Nitrate Urine Bilirubin Urine Urobilinogen Ur Leukocyte Esterase Urine RBC (Auto) Urine Microscopic WBC Urine Opiates Screen Urine Methadone Screen Ur Barbiturates Screen Ur Phencyclidine Scrn Ur Amphetamines Screen U Benzodiazepines Scrn U Oth Cocaine Metabols U Cannabinoids Screen 09/04/17 09/04/17 09/04/17 19:25 19:25 20:45 WBC RBC Hgb Hct MCV MCH MCHC RDW Plt Count MPV Neut % (Auto) Lymph % (Auto) [place] % (Auto) Eos % (Auto) Baso % (Auto) Neut # (Auto) Lymph # (Auto) [place] # (Auto) Eos # (Auto) Baso # (Auto) Sodium 140 Potassium 4.7 Chloride 106 Carbon Dioxide 21 L Anion Gap 18 BUN 11 Creatinine 0.9 Est GFR ( Amer) > 60 Est GFR (Non-Af Amer) > 60 Random Glucose 111 H Hemoglobin A1c Lactic Acid Calcium 9.6 Phosphorus Magnesium Total Bilirubin AST ALT Alkaline Phosphatase Total Creatine Kinase 110 Troponin I 0.0320 Total Protein Albumin Globulin Albumin/Globulin Ratio 25-OH Vitamin D Total 32.7 TSH 3rd Generation 1.12 Prolactin Urine Color Straw Urine Clarity Clear Urine pH 6.0 Ur Specific [place] 1.038 H Urine Protein Negative Urine Glucose (UA) Neg Urine Ketones 20 Urine Blood Negative Urine Nitrate Negative Urine Bilirubin Negative Urine Urobilinogen 0.2-1.0 Ur Leukocyte Esterase Neg Urine RBC (Auto) 1 Urine Microscopic WBC < 1 Urine Opiates Screen Urine Methadone Screen Ur Barbiturates Screen Ur Phencyclidine Scrn Ur Amphetamines Screen U Benzodiazepines Scrn U Oth Cocaine Metabols U Cannabinoids Screen 09/04/17 09/05/17 09/05/17 20:50 04:20 04:20 WBC 10.9 H RBC 4.73 Hgb 14.3 Hct 41.9 MCV 88.6 MCH 30.2 MCHC 34.1 RDW 12.8 Plt Count 234 MPV 10.3 Neut % (Auto) 89.3 H Lymph % (Auto) 6.3 L [place] % (Auto) 4.3 Eos % (Auto) 0.0 Baso % (Auto) 0.1 Neut # (Auto) 9.8 H Lymph # (Auto) 0.7 L [place] # (Auto) 0.5 Eos # (Auto) 0.0 Baso # (Auto) 0.0 Sodium 139 Potassium 4.1 Chloride 107 Carbon Dioxide 22 Anion Gap 14 BUN 10 Creatinine 0.9 Est GFR ( Amer) > 60 Est GFR (Non-Af Amer) > 60 Random Glucose 129 H Hemoglobin A1c Lactic Acid Calcium 9.1 Phosphorus 4.6 H Magnesium 2.1 Total Bilirubin 0.5 AST 16 L D ALT 32 Alkaline Phosphatase 31 L D Total Creatine Kinase 90 Troponin I Total Protein 6.8 Albumin 3.8 Globulin 3.0 Albumin/Globulin Ratio 1.3 25-OH Vitamin D Total TSH 3rd Generation Prolactin Urine Color Urine Clarity Urine pH Ur Specific [place] Urine Protein Urine Glucose (UA) Urine Ketones Urine Blood Urine Nitrate Urine Bilirubin Urine Urobilinogen Ur Leukocyte Esterase Urine RBC (Auto) Urine Microscopic WBC Urine Opiates Screen Negative Urine Methadone Screen Negative Ur Barbiturates Screen Negative Ur Phencyclidine Scrn Negative Ur Amphetamines Screen Negative U Benzodiazepines Scrn Negative U Oth Cocaine Metabols Negative U Cannabinoids Screen Negative 09/05/17 04:20 WBC RBC Hgb Hct MCV MCH MCHC RDW Plt Count MPV Neut % (Auto) Lymph % (Auto) [place] % (Auto) Eos % (Auto) Baso % (Auto) Neut # (Auto) Lymph # (Auto) [place] # (Auto) Eos # (Auto) Baso # (Auto) Sodium Potassium Chloride Carbon Dioxide Anion Gap BUN Creatinine Est GFR ( Amer) Est GFR (Non-Af Amer) Random Glucose Hemoglobin A1c Lactic Acid 0.7 Calcium Phosphorus Magnesium Total Bilirubin AST ALT Alkaline Phosphatase Total Creatine Kinase Troponin I Total Protein Albumin Globulin Albumin/Globulin Ratio 25-OH Vitamin D Total TSH 3rd Generation Prolactin Urine Color Urine Clarity Urine pH Ur Specific [place] Urine Protein Urine Glucose (UA) Urine Ketones Urine Blood Urine Nitrate Urine Bilirubin Urine Urobilinogen Ur Leukocyte Esterase Urine RBC (Auto) Urine Microscopic WBC Urine Opiates Screen Urine Methadone Screen Ur Barbiturates Screen Ur Phencyclidine Scrn Ur Amphetamines Screen U Benzodiazepines Scrn U Oth Cocaine Metabols U Cannabinoids Screen reviewed J.P. - EKG Data EKG comments: reviewed J.P. - Imaging and Cardiology CT scan - head Status: Report reviewed by me (RachelleP.) MRI - head Status: Report reviewed by me (J.P.) Assessment & Plan (1) Altered mental status Status: Acute Priority: High (2) Toxic metabolic encephalopathy Status: Acute Priority: High (3) Hypophosphatemia Status: Acute Priority: High (4) Syncope Status: Acute Priority: High (5) Hx of migraines Status: Chronic Priority: Medium - Assessment and Plan (Free Text) Plan: Pt back to his baseline today, follows commands, can remember incident from yesterday. continue ASA, Sodium Chl, Stroke Team interventional sale consultant appreciated, Pt is medically cleared for discharge home, f/u medical instruction sheet, f/u PMD, f/ u Neurology on 09/06/17. - Date & Time Date: 09/05/17
--- NOTE | 2017-09-05 13:51 | MRI ---
PROCEDURE: MRI BRAIN WITHOUT CONTRAST HISTORY: ams COMPARISON: None. TECHNIQUE: Multiplanar, multisequence MR images of the brain were obtained without intravenous contrast enhancement. FINDINGS: HEMORRHAGE: None DWI: No evidence of an acute or early subacute infarction. BRAIN PARENCHYMA: There are low-lying cerebellar tonsils without definite Arnold-Chiari classification at this time. Otherwise, intrinsic signal throughout the cr and white matter structures above below the tentorium appears otherwise within normal limits including the brainstem. There is no mass effect, parenchymal edema or loss of the corticomedullary differentiation. Midline brain anatomy appears within normal limits exclusive of the cerebellar tonsils. There is no suspicious extra-axial fluid collection identified. VENTRICLES: Unremarkable. No hydrocephalus. CRANIUM: Unremarkable. ORBITS: Grossly unremarkable. PARANASAL SINUSES/MASTOIDS: Clear VASCULAR SYSTEM: Skull base flow voids intact. OTHER FINDINGS: None. IMPRESSION: Low-lying cerebellar tonsils with the remaining brain parenchyma on the otherwise unremarkable.
--- NOTE | 2017-09-05 14:34 | CP.PCM.PCO ---
Assessment/Plan - Assessment and Plan (Free Text) Assessment: Patient seen and examined this afternoon. Awake alert oriented, at bedside, states patient is back to his baseline. Discussed plan with Dr Silva- patients brain mri negative, may be discharged at this time Pt with medication induced psychosis. To cont migraine management as per Neurology Patient has an appt with neurology in [place] 09/06/[address] crowder who agrees with dc plan.
[2017-09-05 14:56] VITALS: BP 117/62; PULSE 72; RESP 15; O2SAT 99
--- NOTE | 2017-09-09 13:20 | CP.PCM.DIS ---
Provider - Provider Date of Admission: 09/04/17 17:05 Attending physician: Ehsan Williamson MD Consults: Stroke team Time Spent in preparation of Discharge (in minutes): 30 Hospital Course - Lab Results Lab Results: Micro Results 09/04/17 18:54 Naris MRSA Culture (Admit) - Final MRSA NOT DETECTED 09/04/17 20:48 Urine Urine Culture - Final No Growth (<1,000 CFU/ML) Most Recent Lab Values WBC 10.9 K/uL (4.8-10.8) H 09/05/17 04:20 RBC 4.73 Mil/uL (4.40-5.90) 09/05/17 04:20 Hgb 14.3 g/dL (12.0-18.0) 09/05/17 04:20 Hct 41.9 % (35.0-51.0) 09/05/17 04:20 MCV 88.6 fl (80.0-94.0) 09/05/17 04:20 MCH 30.2 pg (27.0-31.0) 09/05/17 04:20 MCHC 34.1 g/dL (33.0-37.0) 09/05/17 04:20 RDW 12.8 % (11.5-14.5) 09/05/17 04:20 Plt Count 234 K/uL (130-400) 09/05/17 04:20 MPV 10.3 fl (7.2-11.7) 09/05/17 04:20 Neut % (Auto) 89.3 % (50.0-75.0) H 09/05/17 04:20 Lymph % (Auto) 6.3 % (20.0-40.0) L 09/05/17 04:20 [place] % (Auto) 4.3 % (0.0-10.0) 09/05/17 04:20 Eos % (Auto) 0.0 % (0.0-4.0) 09/05/17 04:20 Baso % (Auto) 0.1 % (0.0-2.0) 09/05/17 04:20 Neut # (Auto) 9.8 K/uL (1.8-7.0) H 09/05/17 04:20 Lymph # (Auto) 0.7 K/uL (1.0-4.3) L 09/05/17 04:20 [place] # (Auto) 0.5 K/uL (0.0-0.8) 09/05/17 04:20 Eos # (Auto) 0.0 K/uL (0.0-0.7) 09/05/17 04:20 Baso # (Auto) 0.0 K/uL (0.0-0.2) 09/05/17 04:20 Neutrophils % (Manual) 91 % (42-75) H 09/04/17 10:00 Lymphocytes % (Manual) 4 % (20-50) L 09/04/17 10:00 Monocytes % (Manual) 5 % (0-10) 09/04/17 10:00 Platelet Estimate Normal (NORMAL) 09/04/17 10:00 PT 11.2 Seconds (9.8-13.1) 09/04/17 10:00 INR 1.0 (0.9-1.2) 09/04/17 10:00 APTT 26.0 Seconds (25.6-37.1) 09/04/17 10:00 pCO2 26 mm/Hg (35-45) L 09/04/17 10:27 pO2 115 mm/Hg (80-100) H 09/04/17 10:27 HCO3 22.9 mmol/L (21-28) 09/04/17 10:27 ABG pH 7.48 (7.35-7.45) H 09/04/17 10:27 ABG Total CO2 20.2 mmol/L (22-28) L 09/04/17 10:27 ABG O2 Saturation 99.3 % (95-98) H 09/04/17 10:27 ABG Base Excess -2.5 mmol/L (-2.0-3.0) L 09/04/17 10:27 Edy Test Yes 09/04/17 10:27 ABG Potassium 3.6 mmol/L (3.6-5.2) 09/04/17 10:27 A-a O2 Difference 2.0 mm/Hg 09/04/17 10:27 Sodium 135.0 mmol/L (132-148) 09/04/17 10:27 Chloride 107.0 mmol/L (98-107) 09/04/17 10:27 Glucose 156 mg/dL (75-110) H 09/04/17 10:27 Lactate 3.3 mmol/L (0.7-2.1) H 09/04/17 10:27 FiO2 21.0 % 09/04/17 10:27 Crit Value Called To Dr yovani lainez 09/04/17 10:05 Crit Value Called By 15 09/04/17 10:05 Crit Value Read Back Y 09/04/17 10:05 Blood Gas Notified Time 1020 09/04/17 10:05 Sodium 139 mmol/l (132-148) 09/05/17 04:20 Potassium 4.1 MMOL/L (3.6-5.0) 09/05/17 04:20 Chloride 107 mmol/L (98-107) 09/05/17 04:20 Carbon Dioxide 22 mmol/L (22-30) 09/05/17 04:20 Anion Gap 14 (10-20) 09/05/17 04:20 BUN 10 mg/dl (9-20) 09/05/17 04:20 Creatinine 0.9 mg/dl (0.8-1.5) 09/05/17 04:20 Est GFR ( Amer) > 60 09/05/17 04:20 Est GFR (Non-Af Amer) > 60 09/05/17 04:20 POC Glucose (mg/dL) 119 mg/dL (65-110) H 09/04/17 09:35 Random Glucose 129 mg/dL (75-110) H 09/05/17 04:20 Hemoglobin A1c 5.2 % (4.2-6.5) 09/04/17 10:00 Lactic Acid 0.7 MMOL/L (0.7-2.1) 09/05/17 04:20 Calcium 9.1 mg/dL (8.4-10.2) 09/05/17 04:20 Phosphorus 4.6 mg/dl (2.5-4.5) H 09/05/17 04:20 Magnesium 2.1 MG/DL (1.6-2.3) 09/05/17 04:20 Total Bilirubin 0.5 mg/dl (0.2-1.3) 09/05/17 04:20 AST 16 U/L (17-59) L D 09/05/17 04:20 ALT 32 U/L (21-72) 09/05/17 04:20 Alkaline Phosphatase 31 U/L (38-126) L D 09/05/17 04:20 Total Creatine Kinase 90 U/L (55-170) 09/05/17 04:20 Troponin I 0.0320 ng/mL (0.00-0.120) 09/04/17 19:25 Total Protein 6.8 G/DL (6.3-8.2) 09/05/17 04:20 Albumin 3.8 g/dL (3.5-5.0) 09/05/17 04:20 Globulin 3.0 gm/dL (2.2-3.9) 09/05/17 04:20 Albumin/Globulin Ratio 1.3 (1.0-2.1) 09/05/17 04:20 Triglycerides 62 mg/DL (0-149) 09/04/17 10:00 Cholesterol 183 mg/dL (0-199) 09/04/17 10:00 LDL Cholesterol Direct 109 mg/dL (0-129) 09/04/17 10:00 HDL Cholesterol 37 MG/DL (30-70) 09/04/17 10:00 25-OH Vitamin D Total 32.7 NG/ML (30.0-100.0) 09/04/17 19:25 TSH 3rd Generation 1.12 mIU/ML (0.46-4.68) 09/04/17 19:25 Prolactin 28.6 ng/mL (3.7-17.9) H 09/04/17 10:36 PTH Intact Whole Molec 33 pg/mL (14-64) 09/04/17 19:25 Arterial Blood Potassium 3.6 mmol/L (3.6-5.2) 09/04/17 10:27 Urine Color Straw (YELLOW) 09/04/17 20:45 Urine Clarity Clear (Clear) 09/04/17 20:45 Urine pH 6.0 (5.0-8.0) 09/04/17 20:45 Ur Specific [place] 1.038 (1.003-1.030) H 09/04/17 20:45 Urine Protein Negative mg/dL (NEGATIVE) 09/04/17 20:45 Urine Glucose (UA) Neg mg/dL (Normal) 09/04/17 20:45 Urine Ketones 20 mg/dL (NEGATIVE) 09/04/17 20:45 Urine Blood Negative (NEGATIVE) 09/04/17 20:45 Urine Nitrate Negative (NEGATIVE) 09/04/17 20:45 Urine Bilirubin Negative (NEGATIVE) 09/04/17 20:45 Urine Urobilinogen 0.2-1.0 mg/dL (0.2-1.0) 09/04/17 20:45 Ur Leukocyte Esterase Neg [place]/uL (Negative) 09/04/17 20:45 Urine RBC (Auto) 1 /hpf (0-3) 09/04/17 20:45 Urine Microscopic WBC < 1 /hpf (0-5) 09/04/17 20:45 Urine Opiates Screen Negative (NEGATIVE) 09/04/17 20:50 Urine Methadone Screen Negative (NEGATIVE) 09/04/17 20:50 Ur Barbiturates Screen Negative (NEGATIVE) 09/04/17 20:50 Ur Phencyclidine Scrn Negative (NEGATIVE) 09/04/17 20:50 Ur Amphetamines Screen Negative (NEGATIVE) 09/04/17 20:50 U Benzodiazepines Scrn Negative (NEGATIVE) 09/04/17 20:50 U Oth Cocaine Metabols Negative (NEGATIVE) 09/04/17 20:50 U Cannabinoids Screen Negative (NEGATIVE) 09/04/17 20:50 Alcohol, Quantitative < 10 mg/dl (0-10) 09/04/17 10:00 Blood Type A POSITIVE 09/04/17 10:00 Antibody Screen Negative 09/04/17 10:00 BBK History Checked No verified bt 09/04/17 10:00 - Date & Time of H&P Date of H&P: 09/05/17 Discharge Exam - Head Exam Head Exam: NORMAL INSPECTION Discharge Plan - Follow Up Plan Condition: GUARDED Disposition: HOME/ ROUTINE Patient education suggested?: Yes Instructions: Altered Mental Status Additional Instructions: F/U with PMD in one week.
== END 2017-09-05 15:13 | disposition home or self-care (01) | DRG 92 ==
LOC: H.ER 09:26 → H.ERHOLD 17:05 → H.ICU/CCU 18:23
PROVIDERS: ADMIT Internal Medicine Pulmonary Disease; ATTEND Internal Medicine Pulmonary Disease
DX: G92 Toxic encephalopathy (principal); E87.2 Acidosis; E83.39 Other disorders of phosphorus metabolism; Z86.718 Personal history of other venous thrombosis and embolism; J45.909 Unspecified asthma, uncomplicated; G43.909 Migraine, unspecified, not intractable, without status migrainosus; T50.995A Adverse effect of other drugs, medicaments and biological substances, initial encounter